=== PATIENT | male | born 1965 | race Caucasian/White ===

== ENCOUNTER 2020-07-22 05:32 | Outpatient (RCR) | payer BC, OTHER ==
[~2020-07-22] VITALS: Ht 175.3 cm; Wt 145.5 kg
[~2020-07-22 05:32] MED LIST: ATOR20TA66 PO; ATOR40TA70 PO; CIPR500T78 PO; FERR256T PO; GEMF600T3 PO; HYDR-34 PO; HYDR1TAB8 OP; HYDR25TA4 PO; LEVO750T6 PO; LISI1TAB26 PO; METR500T PO; MTP100TCR PO; NFNEB10T PO; NITR-65 PO; OMG1KC PO; ONDA-42 SL; PHEN200T27 PO; SULF1TAB35 PO; TAMS0.4C9 PO; TMSL.4C PO; [UNRECOGNIZED DRUG - OTHER] PO
== END 2020-07-22 14:45 | disposition home or self-care (01) ==
LOC: PREOP 05:32
PROVIDERS: ATTEND Surgery
DX: Z01.812 Encounter for preprocedural laboratory examination (principal); Z20.828 Contact with and (suspected) exposure to other viral communicable diseases
CPT/HCPCS: 87635

== ENCOUNTER 2020-07-24 09:11 | Day surgery (SDC) | payer BC, OTHER ==
[2020-07-24] VITALS (16 sets, daily range): BP systolic 123–164; BP diastolic 56–78
[~2020-07-24] VITALS: Ht 175.3 cm; Wt 145.5 kg
[2020-07-24] MEDS ORDERED: NS IV 500 ML 500 ML ONE (09:29)
[2020-07-24] MEDS ORDERED: NS IV 500 ML 500 ML IV PRN (09:32)
[2020-07-24] MEDS ORDERED: LIDOCAINE JELLY 2% 6 ML SYRINGE MM PRN (09:45)
[2020-07-24] MEDS ORDERED: MIDAZOLAM 5 MG/5 ML (VERSED) VIAL IV ONE (09:45)
[2020-07-24] MEDS ORDERED: fentaNYL INJECTION 100 MCG/2 ML AMP IVP ONE (09:45)
[2020-07-24] MEDS ORDERED: MIDAZOLAM 5 MG/5 ML (VERSED) VIAL ONE ×2 (10:32→10:33)
[2020-07-24] MEDS ORDERED: LIDOCAINE JELLY 2% 6 ML SYRINGE ONE (10:32)
[2020-07-24] MEDS ORDERED: fentaNYL INJECTION 100 MCG/2 ML AMP ONE ×2 (10:32)
--- NOTE | 2020-07-24 10:33 | Conscious Sedation/ASA ---
Conscious Sedation Pre-Proced Time 10:00 ASA Score 2 For ASA 3 and 4: Consider anesthesia and medical clearance. Also, for patients with a history of failed moderate sedation consider anesthesia. Airway Lungs Heart ASA score ASA 1: a normal healthy patient ASA 2: a patient with a mild systemic disease (mid diabetes, controlled hypertension, obesity ASA 3: a patient with a severe systemic disease that limits activity (angina, COPD, prior Myocardial infarction) ASA 4: a patient with an incapacitating disease that is a constant threat to life (CHF, renal failure) ASA 5: a moribund patient not expected to survive 24 hrs. (ruptured aneurysm) ASA 6: a declared brain- patient whose organs are being harvested. For emergent operations, add the letter E after the classification Mallampati Classification Grade 3 Sedation Plan Analgesia, Amnesia, Plan communicated to team members, Discussed options with patient/fam, Discussed risks with patient/fam The patient is an appropriate candidate to undergo the planned procedure, sedation, and anesthesia. The patient immediately re-assessed prior to indication. KRISS LAMAR MD Jul 24, 2020 10:33
--- NOTE | 2020-07-24 10:34 | Progress Note-Pre Operative ---
Pre-Operative Progress Note H&P Reviewed The H&P was reviewed, patient examined and no changes noted. Date Seen by Provider: Jul 24, 2020 Time Seen by Provider: 10:00 Date H&P Reviewed: Jul 24, 2020 Time H&P Reviewed: 10:00 Pre-Operative Diagnosis: rectal bleed KRISS LAMAR MD Jul 24, 2020 10:34
--- NOTE | 2020-07-24 10:35 | Discharge Inst-Surgical ---
D/C Lap Instructions-BRIANDA Follow Up Activity as tolerated High Fiber Diet 25g or more per day Avoid Alcohol, Caffeine, Spicy [place] and Acid foods. Drink 64 fluid oz or more of fluids per day. Symptoms to Report: Fever over 101 degree F, Nausea/Vomiting If any problems/questions: Contact your physician or go to Emergency Room KRISS LAMAR MD Jul 24, 2020 10:35
[2020-07-24] MEDS ORDERED: morphine INJ 10 MG/ML 1ML (SYR OR VIAL) IVP PRN ×2 (10:45)
[2020-07-24] MEDS ORDERED: ONDANSETRON 4 MG/2 ML (SDV) Z0FRAN IVP PRN (10:45)
[2020-07-24] MEDS ORDERED: ACETAMINOPHEN 325 MG TABLET PO PRN (10:45)
--- NOTE | 2020-07-24 11:14 | Progress Note-Post Operative ---
Post-Operative Progess Note Surgeon (s)/Orthotist Prosthetist (s) Surgeon KRISS LAMAR MD Orthotist Prosthetist: none Pre-Operative Diagnosis rectal bleed Post-Operative Diagnosis moderate chronic stage 2 ext and int hemorrhoids. Procedure & Operative Findings Date of Procedure 07/24/20 Procedure Performed/Findings colonoscopy Anesthesia Type cs Estimated Blood Loss Estimated blood loss (mL): minimal Specimens/Packing Specimens Removed none KRISS LAMAR MD Jul 24, 2020 11:14
--- NOTE | 2020-07-24 14:39 | OPERATIVE REPORT ---
DATE OF SERVICE: 07/24/2020 ATTENDING PRIMARY CARE PHYSICIAN: Bryant Landrum MD. PREOPERATIVE DIAGNOSIS: Rectal bleed and positive Cologuard test. POSTOPERATIVE DIAGNOSIS: Chronic stage II external and internal hemorrhoids. Remainder of the colon and rectum were normal. PROCEDURE PERFORMED: Colonoscopy. SURGEON: Kriss Lamar MD. ANESTHESIA: Conscious sedation. ESTIMATED BLOOD LOSS: Minimal. FINDINGS: Same as postoperative diagnoses. DISPOSITION: The patient tolerated the procedure well. INDICATIONS FOR PROCEDURE: The patient is a 55-year-old male known to us. We had seen him in August of 2016 for screening colonoscopy. At that time, he was found to have an external and internal hemorrhoids; however, no other lesions. He was referred over to us to for a six to eight-month history of small amounts of bright red blood per rectum. He was seen by his physician and was started on iron around the same time. He also did develop some constipation. He also underwent a Cologuard test, which did come back positive. He does not report any family history of colon cancer. He also does report that he has had some significant constipation more recently. DESCRIPTION OF PROCEDURE: The patient was brought to the endoscopy suite and laid in the left lateral decubitus position. After adequate IV pain and sedative medications and conscious sedation anesthesia, a digital rectal examination was performed. Chronic stage II external and internal hemorrhoids were identified, which were not actively edematous nor inflamed and no bleeding. Normal sphincter tone was felt and there were no palpable masses. Prostate gland was palpable and appeared normal. The endoscope was then intubated into the anus and rectum gently insufflated. The endoscope was then advanced through the valves of [place]rera of the rectum with no polyps or any neoplasms identified. Through the sigmoid colon, there were no diverticulosis identified. The endoscope was then advanced and remainder of the descending, transverse and ascending colon to the cecum, these segments were normal. There were no polyps or any neoplasms identified throughout the colon or rectum. The endoscope was then slowly withdrawn while taking a second look and suctioning of residual air with no additional findings. The patient tolerated the procedure well. We will recommend the necessary lifestyle and diet accommodation including the incorporation of a high fiber diet with fiber supplementation, which should equal or exceed 30 grams of fiber daily as well as significant amounts of water to promote soft stools on a daily basis. With the softer stools, this should allow for involution of the hemorrhoids and less bleeding. If he is again symptomatic, we will have him follow up for another colonoscopy; however, he does not have any family history of colon cancer and if he is asymptomatic, he will not need another colonoscopy for another 10 years. Job ID: [id number] DocumentID: [id number] Dictated Date: 07/24/2020 11:10:43 Deckhand [place] Date: 07/24/2020 14:39:32 Dictated By: KRISS LAMAR MD
== END 2020-07-24 12:10 | disposition home or self-care (01) ==
LOC: ENDO 09:11
PROVIDERS: ATTEND Surgery
DX: K64.1 Second degree hemorrhoids (principal); K59.00 Constipation, unspecified; Z79.899 Other long term (current) drug therapy; E78.00 Pure hypercholesterolemia, unspecified; I10 Essential (primary) hypertension; D50.9 Iron deficiency anemia, unspecified; Z87.442 Personal history of urinary calculi